=== PATIENT | male | born 1950 | race African-American/Black ===

== ENCOUNTER → 2018-05-12 15:48 | Outpatient (CLI) | payer MEDICARE, SELFPAY ==
--- NOTE | 2018-05-12 | DI.MRI.S_ITS ---
PROCEDURE: MR SHOULDER LT WO CON INDICATIONS: LEFT SHOULDER PAIN RADIATING INTO UPPER ARM TECHNIQUE: Noncontrast oblique coronal T2 fast spin echo with fat saturation, oblique sagittal T1 spin echo and T2 fast spin echo with fat saturation, axial T1 spin echo and T2 fast spin echo with fat saturation through the shoulder. COMPARISON: [facility], CR, XR SHOULDER 2+ VIEWS LEFT, 04/21/2018, 16:03. Formerly [facility], MR, SHOULDER WITHOUT CONTRAST, 02/24/2013, 16:39. FINDINGS: Image quality: Excellent. Rotator cuff: There is a partial thickness, bursal surface tear with interstitial extension involving the supraspinatus tendon (series 8, images 9-13). The infraspinatus, and subscapularis tendons appear intact throughout. The infraspinatus tendon is mildly thickened with increased internal signal compatible with mild tendinosis. Sagittal images demonstrate no muscle atrophy. Bones and bursae: No bone marrow contusions or fractures. There is severe acromioclavicular joint osteoarthritis. There is osseous hypertrophy of the undersurface of the acromion which impinges upon the bursal margin of the supraspinatus tendon (series 8, images 13-15). The acromion demonstrates conventional anatomy, without an os acromiale. Fluid is noted in the subacromial/subdeltoid bursa. Capsule and soft tissues: In the absence of intra-articular contrast, the labrum and glenohumeral ligaments appear intact. The long head of the biceps tendon demonstrates normal location. The ventricular portion of the long head of the biceps tendon is thickened with increased internal signal compatible with tendinosis. The rotator interval appears normal, without fibrosis. The coracohumeral ligament is normal in thickness. IMPRESSION: 1. Partial bursal surface tear of the mid supraspinatus tendon. 2. Mild infraspinatus tendinosis. 3. Severe acromioclavicular joint osteoarthritis. 4. Mild subacromial/subdeltoid bursitis. 5. Severe tendinosis involving the intra-articular portion of the long head of the biceps tendon. Dictated by: Iveth Kim MD, PhD on 05/12/2018 at 17:46 Approved by: Iveth Kim MD, PhD on 05/13/2018 at 10:16
== END ==
PROVIDERS: PCP Family Medicine; Visit Provider Orthopaedic Surgery
DX: M25.512 Pain in left shoulder (principal); M75.112 Incomplete rotator cuff tear or rupture of left shoulder, not specified as traumatic; M19.012 Primary osteoarthritis, left shoulder; M75.52 Bursitis of left shoulder
CPT/HCPCS: 73221

== ENCOUNTER → 2019-06-09 19:25 | Outpatient (CLI) | payer MEDICARE, SELFPAY ==
--- NOTE | 2019-06-09 | DI.MRI.S_ITS ---
PROCEDURE: MR ANKLE RT WO CON INDICATIONS: pain in right ankle and joints of right foot TECHNIQUE: Noncontrast sagittal T1 spin echo and T2 fast spin echo with fat saturation, axial proton density fast spin echo and T2 fast spin echo with fat saturation, coronal T1 spin echo and T2 fast spin echo with fat saturation through the ankle/hindfoot. COMPARISON: [facility], MR, ANKLE WITHOUT CONTRAST, 03/16/2016, 8:56. FINDINGS: Image quality: There is mild motion artifact. Bones and joints: There is an osteochondral lesion within the medial talar dome with increased subchondral cystic changes and mild irregularity and flattening of the overlying cortex. No displaced or unstable fragment. There is persistent associated mild subchondral edema. There is mild degeneration of the tibiotalar joint with mild osteophytosis. There is also associated mild cartilage thinning with mild fissuring along the osteochondral lesion. Elsewhere, no fractures or bone contusions. There are postsurgical changes within the posterior calcaneus consistent with prior Achilles tendon reimplantation with 4 surgical anchor tracts demonstrated. No hindfoot coalitions. No pathologic joint effusions. Medial structures: The posterior tibialis, flexor digitorum longus, and flexor hallucis longus tendons are intact. The posterior tibial neurovascular bundle appears normal within the tarsal tunnel, without extrinsic mass effect. The deltoid and spring ligaments appear intact. Lateral structures: The anterior talofibular, calcaneofibular, and posterior talofibular ligaments appear thickened consistent with sequela of prior sprains. More superiorly, the anterior and posterior tibiofibular ligaments appear intact, as is the intermalleolar ligament. The tibiofibular syndesmosis is normal in width at 2 mm or less. The peroneus longus and brevis tendons demonstrate normal location and morphology. Adjacent bony peroneal tubercle and retrotrochlear prominence are normal in size. The sinus tarsi demonstrates preserved fatty signal with mild edema and cystic change which may represent sequelae of ligamentous sprains. The calcaneonavicular and calcaneocuboid components of the bifurcate ligament appear intact. The dorsal calcaneocuboid ligament appears intact. Anterior structures: The tibialis anterior, extensor hallucis longus, and extensor digitorum longus tendons appear intact. The dorsal talonavicular ligament appears intact. Posterior and plantar structures: Achilles tendon is thickened distally with mild intermediate signal consistent with moderate tendinopathy. There are 4 surgical anchors along its insertion. No evidence of rupture. There is mild thickening of the central cord of the plantar fascia at its origin suggesting sequelae of prior plantar fasciitis. A small associated plantar calcaneal enthesophyte is noted. No abductor digiti quinti muscle atrophy to suggest Dawson neuropathy. IMPRESSION: 1. Osteochondral lesion of the medial talar dome redemonstrated with increased mild cortical irregularity and flattening. No displaced or unstable fragment. 2. Mild tibiotalar joint degeneration with mild cartilage thinning as well as mild chondral fissuring along the osteochondral lesion. 3. Postsurgical changes consistent with Achilles tendon reimplantation with 4 surgical anchor tracts noted. There is tendinopathy of the distal Achilles tendon without evidence of rupture. 4. Probable sequela of prior lateral ligamentous sprains. 5. Mild edema and cystic change in the sinus tarsi may reflect sinus tarsi syndrome. Dictated by: Tim Delacruz M.D. on 06/10/2019 at 10:55 Approved by: Tim Delacruz M.D. on 06/10/2019 at 11:04
== END ==
PROVIDERS: Family Provider Family Medicine; PCP Family Medicine; Visit Provider Podiatrist Foot & Ankle Surgery
DX: M25.571 Pain in right ankle and joints of right foot (principal); M19.071 Primary osteoarthritis, right ankle and foot; M93.971 Osteochondropathy, unspecified, right ankle and foot
CPT/HCPCS: 73721

== ENCOUNTER → 2019-11-19 09:41 | Outpatient (CLI) | payer MEDICARE, SELFPAY ==
--- NOTE | 2019-11-19 09:48 | DI.RAD.S_ITS ---
PROCEDURE: XR LUMBAR SPINE MIN 4V INDICATIONS: LBP TECHNIQUE: 5 views of the lumbar spine were acquired. COMPARISON: [facility], CT, IVP (ABD & PEL WWO CONTRAST), 01/20/2013, 8:53. FINDINGS: Bones: 5 nonrib-bearing vertebrae are present. No significant scoliosis. No vertebral body compression fractures. Mild degenerative change most pronounced at L5-S1 where there is joint space height loss, osteophytosis, and endplate sclerosis. No suspicious bony lesions. Soft tissues: Overlying bowel gas pattern is normal. No suspicious soft tissue calcifications. Left pelvis penile prosthesis reservoir. Oblique images: No pars defects. IMPRESSION: No acute osseous abnormality. Mild degenerative change and DDD in the lumbar spine. Dictated by: Stephan Angelo M.D. on 11/19/2019 at 10:14 Approved by: Stephan Angelo M.D. on 11/19/2019 at 10:17
== END ==
PROVIDERS: Family Provider Family Medicine; PCP Family Medicine; Referring Provider Physical Medicine & Rehabilitation; Visit Provider Physical Medicine & Rehabilitation
DX: M51.17 Intervertebral disc disorders with radiculopathy, lumbosacral region (principal); M47.27 Other spondylosis with radiculopathy, lumbosacral region
CPT/HCPCS: 72110

== ENCOUNTER → 2020-01-26 15:52 | Outpatient (CLI) | payer MEDICARE, SELFPAY ==
--- NOTE | 2020-01-26 15:55 | DI.MRI.S_ITS ---
PROCEDURE: MR HIP RT WO CON INDICATIONS: Progressive right hip pain TECHNIQUE: Noncontrast coronal T1 spin echo and STIR through the bony pelvis. Coronal and axial T2 fast spin echo with fat saturation, sagittal T1 spin echo, and oblique axial T2 fast spin echo with fat saturation through the hip. COMPARISON: None. FINDINGS: Image quality: Excellent. Bones and joints: No fracture identified. Sacroiliac joints are unremarkable in signal intensity. There is lower lumbar spondylosis and facet arthropathy. Mild bilateral hip joint degeneration. No pathologic hip joint effusion. No evidence of osteonecrosis. Incidentally noted reservoir seen in the left pelvis. Tendons and ligaments: Mild bilateral hip abductor insertional tendinopathy. Proximal iliotibial band intact. Iliopsoas tendon intact. Partial tear at the hamstring origin. The straight and reflected heads of the rectus femoris muscle origin appear intact Ligamentum teres appears intact where visualized. Labrum: Macerated appearance of the labrum suggestive of chronic ill-defined tear. There is adjacent subchondral sclerosis and spurring at the acetabulum. Mild adjacent partial-thickness chondral loss. The alpha angle of the femur is within normal limits at less than 55 degrees. Soft tissues: Visualized muscles demonstrate normal bulk and internal signal. Quadratus femoris muscle normal. Proximal sciatic neurovascular bundle appears normal adjacent to the hamstring tendons. No free pelvic fluid. Bladder normal. Genitourinary structures and bowel loops appear normal where visualized. IMPRESSION: Mild bilateral hip joint degeneration Right hamstring origin tendinopathy/partial tear, technically age indeterminate. Of note, similar finding seen on the contralateral left side on large [id number] pulse sequences. Macerated appearing tear of the right anterosuperior labrum, which is chronic with adjacent associated degenerative changes in the acetabulum and cartilage as above. Dictated by: Jonathon Bates M.D. on 01/27/2020 at 8:40 Approved by: Jonathon Bates M.D. on 01/27/2020 at 8:46
--- NOTE | 2020-01-26 15:55 | DI.MRI.S_ITS ---
PROCEDURE: MR LUMBAR SPINE WO CON INDICATIONS: axial LBP TECHNIQUE: Noncontrast sagittal T1 spin echo and T2 fast echo, sagittal STIR, axial T1 and T2 fast spin echo through the lumbar spine. In cases with scoliosis, additional coronal T2 fast spin echo may be performed. COMPARISON: [facility], MR, L-SPINE WITHOUT CONTRAST, 02/18/2014, 12:09. [facility], CR, XR LUMBAR SPINE MIN 4V, 11/19/2019, 9:50. FINDINGS: Image quality: Excellent. Alignment and Curvature: There is normal bony alignment. Bone Marrow: Marrow is of normal overall signal. No acute vertebral body compression fractures. Spinal Cord: Conus medullaris terminates at the L1 level. Visualized cord demonstrates normal signal and size. Paraspinous Soft Tissues: No paravertebral masses. Partially bilateral renal cysts. L1-L2: Loss of disc signal. No central stenosis. No neural foraminal narrowing. No neural compression. L2-L3: Loss of disc signal. Mild, diffuse disc bulge. No central stenosis. No neural foraminal narrowing. No neural compression. L3-L4: Loss of disc signal. Mild, diffuse disc bulge. Mild bilateral facet hypertrophy. No central stenosis. Mild bilateral neural foraminal narrowing. No neural compression. L4-L5: Loss of disc signal. Mild to moderate diffuse disc bulge. Mild right and moderate left facet hypertrophy. Mild narrowing of the central canal. Moderate bilateral neural foraminal narrowing. No neural compression. L5-S1: Loss of disc signal and slight loss of disc height. Mild, diffuse disc bulge. Qvdq-[id number] bilateral facet hypertrophy. No central stenosis. Moderate to severe right and moderate left neural foraminal narrowing with slight compression of the exiting right L5 nerve root. IMPRESSION: 1. Multilevel degenerative disease. 2. Multilevel facet arthropathy. 3. No significant central canal narrowing. 4. Moderate to severe right L5-S1 neural foraminal narrowing with slight compression of the exiting right L5 nerve root. Please correlate with clinical data. Dictated by: Iveth Kim MD, PhD on 01/27/2020 at 10:46 Approved by: Iveth Kim MD, PhD on 01/27/2020 at 12:11
== END ==
PROVIDERS: Family Provider Family Medicine; PCP Family Medicine; Referring Provider Physical Medicine & Rehabilitation; Visit Provider Physical Medicine & Rehabilitation
DX: M25.551 Pain in right hip (principal); M16.0 Bilateral primary osteoarthritis of hip; S73.191A Other sprain of right hip, initial encounter; S76.811A Strain of other specified muscles, fascia and tendons at thigh level, right thigh, initial encounter; M54.5 Low back pain; M47.816 Spondylosis without myelopathy or radiculopathy, lumbar region; M47.817 Spondylosis without myelopathy or radiculopathy, lumbosacral region; M51.36 Other intervertebral disc degeneration, lumbar region; M51.37 Other intervertebral disc degeneration, lumbosacral region; M48.07 Spinal stenosis, lumbosacral region
CPT/HCPCS: 72148; 73721

== ENCOUNTER 2020-06-25 03:09 | Emergency (ER) | payer MEDICARE, SELFPAY ==
[2020-06-25 03:18] VITALS: BP 200/95; PULSE 70; RESP 17; TEMP 36.6; O2SAT 99; BMI 25.7
--- NOTE | 2020-06-25 03:34 | DI.CT.S_ITS ---
PROCEDURE: CT HEAD/BRAIN WO CON INDICATIONS: left arm numbness TECHNIQUE: Noncontrast 4.5 mm thick angled axial sections acquired from the foramen magnum to the vertex, with coronal and sagittal reformats. For radiation dose reduction, the following was used: automated exposure control, adjustment of mA and/or kV according to patient size. COMPARISON: None. FINDINGS: Image quality: Excellent. CSF spaces: Basal cisterns are patent. No extra-axial fluid collections. The ventricles are symmetric in size and shape. Brain: No intracranial bleeds or masses. There is cerebral volume loss for age, with resultant ventricular and sulcal prominence. There are periventricular and deep white matter chronic small vessel ischemic changes. There is intracranial internal carotid artery atherosclerosis. Skull and face: Calvarium and visualized facial bones appear intact, without suspicious lesions. Sinuses: There is mild mucosal thickening of the maxillary sinuses. Visualized sinuses and mastoids are otherwise clear. IMPRESSION: 1. No acute intracranial findings. These findings are concordant with the overnight interpretation. Dictated by: Madelin Boyd M.D. on 06/25/2020 at 7:51 Approved by: Madelin Boyd M.D. on 06/25/2020 at 7:52
--- NOTE | 2020-06-25 03:35 | ED.NEUROSD ---
HPI - Neuro Symptoms/Deficit General Chief Complaint: Dizziness Stated Complaint: Pain down left arm x 1 month Time Seen by Provider: 06/25/20 03:32 Source: patient Mode of arrival: Ambulatory Limitations: no limitations History of Present Illness HPI Narrative: Patient is a 69-year-old male with history of hypertension hyperlipidemia presenting with left arm numbness. He has actually had left arm pain ongoing for about 1 month. He got up this evening to use the restroom he felt a little dizzy lightheaded and then felt some tingling down to his fingertips. Last was 30 minutes or last and his essentially resolved. He said upon standing initially he felt like he might lose his balance but he did not he was able to steady himself. He has no chest pain or heart palpitations. He denies any weakness. Pain in his left shoulder is not exacerbated by his neck. He denies any known injury. He is noted to be quite hypertensive which she says is very abnormal for him as well pressure is usually well controlled Related Data Home Medications Medication Instructions Recorded Confirmed amlodipine-atorvastatin [Caduet] 1 tab PO Q DAY #0 07/09/11 01/31/20 atorvastatin 10 mg tablet 10 mg PO DAILY 11/29/19 01/31/20 Previous Rx's Medication Instructions Recorded celecoxib 200 mg capsule 200 mg PO DAILY #30 cap 02/17/20 Allergies Allergy/AdvReac Type Severity Reaction Status Date / Time nuts Allergy Severe Anaphylaxis Uncoded 01/31/20 15:36 Review of Systems Review of Systems ROS Unobtainable: All systems reviewed & are unremarkable except as noted in HPI and below Constitutional Constitutional: Denies chills, Denies fever(s), Denies lethargy and Denies weakness Eyes Eyes: Denies change in vision, Denies eye discharge, Denies irritation and Denies loss of vision ENT Ears, Nose, Mouth, and Throat: Denies change in voice, Denies neck pain and Denies sore throat Cardiovascular Cardiovascular: Denies chest pain, Denies irregular heart rhythm, Reports lightheadedness, Denies palpitations, Denies dyspnea, Denies dyspnea on exertion and Denies orthopnea Respiratory Respiratory: Denies cough, Denies dyspnea, Denies dyspnea on exertion and Denies wheezing Gastrointestinal Gastrointestinal: Denies abdominal pain, Denies change in bowel habits, Denies diarrhea, Denies nausea and Denies vomiting Musculoskeletal Musculoskeletal: Denies neck pain, Reports numbness and Reports tingling Integumentary/Breasts Skin/Breast: Denies pruritus, Denies erythema, Denies rash and Denies wounds Neurologic Neurologic: Reports as per HPI, Denies abnormal movements, Denies vertigo, Denies localized weakness, Denies loss of vision, Reports numbness, Reports tingling and Denies weakness Endocrine Endocrine: Denies palpitations Allergic/Immunologic Allergic/Immunologic: Denies wheezing Patient History Medical History Degenerative joint disease of right hip Facet arthropathy, lumbar Gait instability Greater trochanteric bursitis of right hip HLD (hyperlipidemia) HTN (hypertension) Osteochondral lesion of talar dome Surgical History H/O Achilles tendon repair H/O foot surgery H/O knee surgery Family History Unknown No pertinent family history Social History Smoking Status: Never smoker Smoking Status: Never smoker Substance Use Type: does not use Exam Initial Vital Signs Initial Vital Signs: Vital Signs Temperature 97.9 F 06/25/20 03:18 Pulse Rate 70 06/25/20 03:18 Respiratory Rate 17 06/25/20 03:18 Blood Pressure 200/95 H 06/25/20 03:18 Pulse Oximetry 99 06/25/20 03:18 GENERAL: Well-appearing, well-nourished and in no acute distress. HEENT: Head atraumatic,EOMI, pupils reactive, face symmetric, moist mucous membranes CARDIOVASCULAR: Regular rate and rhythm without murmurs, rubs or gallops. RESPIRATORY: Breath sounds equal bilaterally, no wheezes rales or rhonchi. ABDOMEN: Soft, nontender. Normoactive bowel sounds all 4 quadrants. No guarding or rebound. EXTREMITIES: Normal range of motion, no clubbing or edema. Neurovascularly intact NEUROLOGICAL: Alert and oriented x4.Normal gait and speech. Cranial nerves II through XII grossly intact. Good [id number], good vlfc-[id number], strength equal bilaterally, no dysarthria or aphasia, sensation in tact to soft touch bilaterally, no visual changes, no facial droop SKIN: Warm, dry, no laceration, no petechiae, no rashes or lesions. Scores NIH Stroke Scale Level of Conciousness: Alert, keenly responsive Ask month/age: Answers both questions correctly. Open/close eyes, close hand: Performs both tasks correctly Best gaze horizontal: Normal Visual [place]: No visual loss Facial palsy: Normal symetrical movement Left arm drift: No drift for full 10 sec Right arm drift: No drift for full 10 sec Left leg drift: No drift for full 5 sec Right leg drift: No drift for full 5 sec Limb ataxia: Absent Sensory on face/arms/legs: Mild to moderate sensory loss, can tell touch Best language: No aphasia, normal Dysarthria: Normal Extinction or inattention: No abnormality Total NIH Stroke scale score: 1 Course Orders Ordered: ED Orders 06/25/20 03:34 CT head/brain wo con Stat Complete Blood Count AUTO DIFF Stat Comprehensive Metabolic Panel Stat Troponin & CK Cardiac Panel Stat Discontinued Medications Sodium Chloride (Normal Saline 0.9%) 1,000 mls @ 1,000 mls/hr IV BOLUS ONE Stop: 06/25/20 04:33 Last Admin: 06/25/20 03:53 Dose: 1,000 mls/hr Documented by: Vital Signs Vital signs: Vital Signs - 8 hr 06/25/20 03:18 06/25/20 03:36 06/25/20 03:53 Temperature 97.9 F Pulse Rate 70 60 59 L Respiratory Rate 17 14 Blood Pressure 200/95 H 164/86 H 158/111 H Pulse Oximetry 99 99 99 06/25/20 04:00 06/25/20 04:32 Temperature Pulse Rate 54 L 59 L Respiratory Rate 15 Blood Pressure 163/80 H 174/84 H Pulse Oximetry 98 99 MDM - Neuro Symptoms/Deficit Lab Data Result diagrams: 06/25/20 03:35 06/25/20 03:35 Labs: Lab Results 06/25/20 06/25/20 Range/Units 03:35 03:35 WBC 7.0 (4.5-11.0) X10^3/uL RBC 5.08 (4.5-5.9) X10^6/uL Hgb 13.6 (13.5-17.5) g/dL Hct 41.7 (41-53) % MCV 82.1 (80-100) fL MCH 26.8 (26-34) PG MCHC 32.6 (30-36) % RDW 14.6 (11.6-14.8) % Plt Count 231 (150-400) X10^3/uL Neut % (Auto) 50.0 (50-75) % Lymph % (Auto) 35.9 (25-40) % [place] % (Auto) 8.3 (3-14) % Eos % (Auto) 4.9 H (2-4) % Baso % (Auto) 0.9 (0-2) % Neut # (Auto) 3500 (2317-4929) /uL Lymph # (Auto) 2500 (1406-3717) /uL [place] # (Auto) 600 (0-900) /uL Eos # (Auto) 300 (0-450) /uL Baso # (Auto) 100 (0-100) /uL Sodium 139 (137-145) mmol/L Potassium 3.7 (3.4-5.1) mmol/L Chloride 106 (98-107) mmol/L Carbon Dioxide 28 (22-32) mmol/L BUN 19 (9-20) mg/dL Creatinine 1.32 H (0.66-1.25) mg/dL Estimated GFR 53.6 L (>60) mL/min BUN/Creatinine Ratio 14.4 (6-22) Glucose 112 H (80-110) mg/dL Calcium 9.2 (8.4-10.2) mg/dL Total Bilirubin 0.3 (0.2-1.3) mg/dL AST 21 (17-59) IU/L ALT 18 (<50) IU/L Alkaline Phosphatase 55 (38-126) U/L Total Creatine Kinase 116 (55-170) U/L CK-MB (CK-2) 0.39 (<2.37) ng/mL CK-MB (CK-2) Rel Index 0.3 L (1.5-5.0) % Troponin I < 0.012 (0.01-0.034) ng/mL Total Protein 7.7 (6.3-8.2) g/dL Albumin 4.4 (3.5-5.0) g/dL Globulin 3.3 (1.7-4.1) g/dL Albumin/Globulin Ratio 1.3 (1.0-2.8) Imaging Data CT scan - head: Radiologist's Impression: Preliminary report unremarkable CT of the head ECG Data Attestation: I personally reviewed and interpreted this ECG as follows: Prior ECG tracings: not available for review Interpretation: Normal sinus rhythm rate 61 p.r. interval 240 QRS [address] changes first-degree AV block no priors to compare Q-wave noted in V1 and V2 MDM Narrative Medical decision making narrative: The patient has a low NIH stroke score. He actually now states that he sleeps really only on his left side he thinks a loose why his left shoulder has been hurting him for about a month. He had numbness and tingling is sinus he woke up from the left side. It quickly resolved. He was a little lightheaded but did not pass out. Able to drive himself to the emergency department. Blood work is overall reassuring. I think his numbness is likely a paresthesia from his ongoing left shoulder pain. He does not have any cervical radiculopathy. He had no weakness. I recommend he have further evaluation of his left shoulder. Overall he is feeling much better. Blood pressure has improved without any hypertensive medication in the emergency department Discharge Plan Departure Patient Disposition: Home Clinical Impression: Arm paresthesia, left Instructions: DI for Cervical Radiculopathy Activity Restrictions/Additional Instructions: *You have been diagnosed with paresthesias *What to do: At this time it is likely that you have some nerve radiculopathy and paresthesias in your left arm. It does not seem to be a stroke at this time Your blood pressure has improved while your in the emergency department please continue to check it. Follow up with your primary doctor blood pressure medication may need to be adjusted *Continue to take medications as directed *Follow up with your primary care provider in 2-3 days *Return to ER if you should have weakness numbness tingling facial droop, speech difficulty, balance issues or any new, worsening or concerning symptoms Prescriptions: No Action amlodipine-atorvastatin [Caduet] 10 GM/10 MG tablet 1 tab PO Q DAY Qty: 0 RF: 0 celecoxib 200 mg capsule 200 mg PO DAILY Qty: 30 RF: 2 atorvastatin [Lipitor] 10 mg tablet 10 mg PO DAILY RF: 0 Referrals: Rickey Mendes MD [Physician] -
[2020-06-25 03:36] VITALS: BP 164/86; PULSE 60; O2SAT 99
[2020-06-25 03:42] LABS: Add Manual Diff / Slide Review NO; Basophils Absolute Auto 100 /uL (0-100); Basophils Percent Auto 0.9 % (0-2); Eosinophils Absolute Auto 300 /uL (0-450); Eosinophils Percent Auto 4.9 % (2-4); Hematocrit 41.7 % (41-53); Hemoglobin 13.6 g/dL (13.5-17.5); Lymphocytes Absolute Auto 2500 /uL (1100-4500); Lymphocytes Percent Auto 35.9 % (25-40); Mean Corpuscular HGB Conc 32.6 % (30-36); Mean Corpuscular Hemoglobin 26.8 PG (26-34); Mean Corpuscular Volume 82.1 fL (80-100); Monocytes Absolute Auto 600 /uL (0-900); Monocytes Percent Auto 8.3 % (3-14); Neutrophils Absolute Auto 3500 /uL (1500-7000); Platelet Count 231 X10^3/uL (150-400); Red Blood Cell Count 5.08 X10^6/uL (4.5-5.9); Red Cell Distribution Width 14.6 % (11.6-14.8)
[2020-06-25 03:53] VITALS: BP 158/111; PULSE 59; RESP 14; O2SAT 99
[2020-06-25 03:53] LABS: Alanine Aminotransferase 18 IU/L (<50); Albumin 4.4 g/dL (3.5-5.0); Albumin Globulin Ratio 1.3 (1.0-2.8); Alkaline Phosphatase 55 U/L (38-126); Aspartate Aminotransferase 21 IU/L (17-59); BUN Creatinine Ratio 14.4 (6-22); Bilirubin Total 0.3 mg/dL (0.2-1.3); Blood Urea Nitrogen 19 mg/dL (9-20); Calcium 9.2 mg/dL (8.4-10.2); Carbon Dioxide 28 mmol/L (22-32); Chloride 106 mmol/L (98-107); Creatine Kinase 116 U/L (55-170); Estimated Glomerular Filt Rate 53.6 mL/min (>60); Globulin 3.3 g/dL (1.7-4.1); Glucose 112 mg/dL (80-110); HEMOLYSIS < 15 (0-50); Potassium 3.7 mmol/L (3.4-5.1); Sodium 139 mmol/L (137-145); Total Protein 7.7 g/dL (6.3-8.2)
[2020-06-25] MEDS: SODIUM CHLORIDE 0.9% 1,000 ML 1000 ML IV (03:53)
[2020-06-25 04:00] VITALS: BP 163/80; PULSE 54; O2SAT 98
[2020-06-25 04:05] LABS: Troponin I < 0.012 ng/mL (0.01-0.034)
[2020-06-25 04:09] LABS: CKMB % Relative Index 0.3 % (1.5-5.0); Creatine Kinase MB 0.39 ng/mL (<2.37)
[2020-06-25 04:32] VITALS: BP 174/84; PULSE 59; RESP 15; O2SAT 99
== END 2020-06-25 04:41 | disposition home or self-care (01) ==
PROVIDERS: Emergency Provider Emergency Medicine
DX: R20.0 Anesthesia of skin (principal); M79.602 Pain in left arm; I10 Essential (primary) hypertension; E78.5 Hyperlipidemia, unspecified
CPT/HCPCS: 36415; 70450; 80053; 82550; 82553; 84484; 85025; 93005; 96360; 99284

== ENCOUNTER 2020-12-24 02:49 | Emergency (ER) | payer MEDICARE, SELFPAY ==
[2020-12-24 03:00] VITALS: BP 161/82; PULSE 74; RESP 16; TEMP 36.4; O2SAT 97; BMI 25.0
--- NOTE | 2020-12-24 03:04 | DI.RAD.S_ITS ---
PROCEDURE: XR CHEST 2V INDICATIONS: short of breath, chest congestion TECHNIQUE: 2 views of the chest were acquired. COMPARISON: [facility], , CHEST 1 VIEW, 03/05/2007, 5:46. FINDINGS: Surgical changes and devices: None. Lungs and pleura: Lungs are clear. No pleural effusions or pneumothorax. Mediastinum: Mediastinal contours are normal. Heart size is normal. Bones and chest wall: No suspicious bony abnormalities. Soft tissues appear unremarkable. IMPRESSION: No evidence acute pulmonary process. Comment: Final report is concordant with preliminary interpretation provided by [facility]. Dictated by: Torito Castano M.D. on 12/24/2020 at 7:29 Approved by: Torito Castano M.D. on 12/24/2020 at 7:29
--- NOTE | 2020-12-24 03:43 | ED_ITS ---
HPI - URI/Sore Throat General Chief Complaint: Upper Respiratory Symptoms Stated Complaint: Lungs congested, cough not clearing Time Seen by Provider: 12/24/20 02:55 Source: patient Mode of arrival: Ambulatory Limitations: no limitations History of Present Illness HPI Narrative: 70-year-old male nonsmoker with noncontributory medical history presents with a chief complaint of postnasal drip and chest congestion for the past few days. He denies any headache, sore throat or fever. He has no chest pain. He is not dizzy nor weak or lightheaded. Denies any new medications or dietary change. He denies any history of the same. He is not dizzy nor weak or lightheaded. Denies nausea, vomiting or diarrhea. He has been immunized against COVID. He did try taking a single Benadryl pill last night and did little to help him. MD Complaint: cough, rhinorrhea and nasal congestion Onset (ago): day(s) Duration: constant Severity: moderate Relieving factors: nothing Description of mucous: clear Associated symptoms: denies other symptoms Related Data Home Medications Medication Instructions Recorded Confirmed amlodipine-atorvastatin [Caduet] 1 tab PO Q DAY #0 07/09/11 01/31/20 atorvastatin 10 mg tablet 10 mg PO DAILY 11/29/19 01/31/20 Previous Rx's Medication Instructions Recorded celecoxib 200 mg capsule 200 mg PO DAILY #30 cap 02/17/20 Allergies Allergy/AdvReac Type Severity Reaction Status Date / Time nuts Allergy Severe Anaphylaxis Uncoded 12/24/20 03:00 Review of Systems Constitutional Constitutional: Denies chills, Denies fatigue, Denies fever(s), Denies frequent falls, Denies lethargy and Denies weakness Eyes Eyes: Denies change in vision, Denies eye discharge, Denies irritation and Denies loss of vision ENT Ears, Nose, Mouth, and Throat: Denies change in voice, Denies dizziness, Denies neck pain, Denies sore throat and Denies throat swelling Cardiovascular Cardiovascular: Denies chest pain, Denies irregular heart rhythm, Denies lightheadedness, Denies palpitations, Denies dyspnea, Denies dyspnea on exertion and Denies orthopnea Respiratory Respiratory: Reports chest congestion, Reports cough, Reports excessive phlegm production, Denies dyspnea, Denies dyspnea on exertion and Denies wheezing Gastrointestinal Gastrointestinal: Denies abdominal pain, Denies change in bowel habits, Denies diarrhea, Denies nausea and Denies vomiting Musculoskeletal Musculoskeletal: Denies neck pain and Denies numbness Integumentary/Breasts Skin/Breast: Denies pruritus, Denies erythema, Denies rash and Denies wounds Neurologic Neurologic: Denies behavioral changes, Denies confusion, Denies dizziness, Denies frequent falls, Denies loss of vision, Denies numbness and Denies weakness Psychiatric Psychiatric: Denies anxiety, Denies behavioral changes, Denies confusion, Denies depression, Denies homicidal ideation and Denies suicidal ideation Endocrine Endocrine: Denies fatigue, Denies flushing and Denies palpitations Hematologic/Lymphatic Hematologic/Lymphatic: Denies easy bruising Allergic/Immunologic Allergic/Immunologic: Denies urticaria, Denies throat swelling and Denies wheezing Patient History Medical History Degenerative joint disease of right hip Facet arthropathy, lumbar Gait instability Greater trochanteric bursitis of right hip HLD (hyperlipidemia) HTN (hypertension) Osteochondral lesion of talar dome Surgical History H/O Achilles tendon repair H/O foot surgery H/O knee surgery Family History Unknown No pertinent family history Social History Smoking Status: Never smoker Smoking Status: Never smoker Substance Use Type: does not use Exam Narrative Exam Narrative: GENERAL: [70] year old patient appears younger than stated age. Well-developed patient, in mild distress. HEAD: Atraumatic. Normocephalic. EYES: Pupils equal round and reactive. Extraocular motions intact. No scleral icterus. No injection or drainage. ENT: Nose without drainage. Throat without erythema, tonsillar hypertrophy or exudate, moderate clear post pharyngeal drainage. Airway patent. NECK: Trachea midline. Non tender CARDIOVASCULAR: Regular rate and rhythm without murmurs, gallops, or rubs. RESPIRATORY: Clear to auscultation. Breath sounds equal bilaterally. No wheezes, rales, or rhonchi. No increased work of breathing GASTROINTESTINAL: Abdomen soft, non-tender, nondistended. EXTREMITIES: No edema or joint tenderness. BACK: Nontender without deformity or crepitance. No flank tenderness. NEURO: AOx3. SKIN: No rash or erythema of visible areas Initial Vital Signs Initial Vital Signs: Vital Signs Temperature 97.5 F L 12/24/20 03:00 Pulse Rate 74 12/24/20 03:00 Respiratory Rate 16 12/24/20 03:00 Blood Pressure 161/82 H 12/24/20 03:00 Pulse Oximetry 97 12/24/20 03:00 Course Orders Ordered: ED Orders 12/24/20 03:04 XR chest 2V Stat 12/24/20 03:35 COVID19 -Nasal swab/Pre-Proc Stat Vital Signs Vital signs: Vital Signs - 8 hr 12/24/20 03:00 Temperature 97.5 F L Pulse Rate 74 Respiratory Rate 16 Blood Pressure 161/82 H Pulse Oximetry 97 MDM - URI/Sore Throat Lab Data Labs: Lab Results 12/24/20 Range/Units 03:35 SARS-CoV-2 (PCR) Negative (Negative) Imaging Data Chest x-ray: Radiologist's Impression: No acute findings Discharge Plan Departure Patient Disposition: Home Clinical Impression: Chest congestion Activity Restrictions/Additional Instructions: *You have been diagnosed with [Chest congestion and postnasal drip. Chest x-ray is clear, COVID is negative. Your history and physical exam are very reassuring ] *What to do: *An over the counter antihistamine such as zyrtec, chase, or claritin will help dry the secretions which are likely leading to your symptoms *Please continue to take your regular medications as directed. *Please follow up with your primary care provider in 2-3 days, call for an appointment. Let them know you were seen in the Emergency Department and that we ask that you be seen in follow up. We will electronically transmit a record of today's note if your PCP is in our system *If you do not have a primary care provider please contact the [facility] Resource line at [phone]. They will ask some questions about your medical history and help get you set up with a doctor in the community. *Return to Emergency Department if you should have any new, worsening or concerning symptoms, such as [fever greater than 101 F, shaking chills, worsening pain, persistent vomiting or other bothersome symptoms] Prescriptions: No Action amlodipine-atorvastatin [Caduet] 10 GM/10 MG tablet 1 tab PO Q DAY Qty: 0 RF: 0 celecoxib 200 mg capsule 200 mg PO DAILY Qty: 30 RF: 2 atorvastatin [Lipitor] 10 mg tablet 10 mg PO DAILY RF: 0
[2020-12-24 03:53] LABS: COVID19 -Nasal RAPID Negative (Negative)
[2020-12-24 04:15] VITALS: BP 159/75; PULSE 62; RESP 16; O2SAT 99
== END 2020-12-24 04:15 | disposition home or self-care (01) ==
PROVIDERS: Emergency Provider Emergency Medicine
DX: R09.89 Other specified symptoms and signs involving the circulatory and respiratory systems (principal); R09.82 Postnasal drip; Z20.822 Contact with and (suspected) exposure to COVID-19
CPT/HCPCS: 71046; 87635; 99283; C9803

== ENCOUNTER → 2021-08-13 13:39 | Outpatient (CLI) | payer MEDICARE, SELFPAY ==
--- NOTE | 2021-08-13 | DI.RAD.S_ITS ---
PROCEDURE: XR FOOT RT MIN 3V INDICATIONS: Pain in right foot TECHNIQUE: 3 views of the foot were acquired. COMPARISON: [facility], CT, CT FOOT RT WO CON, 01/29/2017, 14:59. [facility], CR, FOOT COMP MIN 3VW (RT), 11/03/2014, 15:11. FINDINGS: Bones: No acute, displaced fracture. Mild to moderate arthrosis of the 1st MTP with joint space loss and osteophytosis. Productive change of the hallux sesamoids. An ossific lesion is seen superior to the posterior calcaneus, which may reflect an intra-articular body. Soft tissues: No tibiotalar joint effusion. Achilles tendon appears normal. IMPRESSION: No acute osseous abnormality. Dictated by: Pankaj Young M.D. on 08/13/2021 at 14:34 Approved by: Pankaj Young M.D. on 08/13/2021 at 14:39
== END ==
PROVIDERS: PCP Family Medicine; Referring Provider Family Medicine; Visit Provider Family Medicine
DX: M79.671 Pain in right foot (principal)
CPT/HCPCS: 73630

== ENCOUNTER → 2021-12-11 14:05 | Outpatient (CLI) | payer MEDICARE, SELFPAY ==
--- NOTE | 2021-12-11 | DI.US.S_ITS ---
PROCEDURE: US RENAL COMPLETE INDICATIONS: Chronic kidney disease, stage 3a TECHNIQUE: Real-time scanning was performed of the kidneys and bladder, with image documentation. COMPARISON: None. FINDINGS: Kidneys: Kidneys are normal in size. Right kidney measures 9.5 cm long; left kidney measures 10.7 cm long. Right renal cortical thickness is 1.2 cm; left renal cortical thickness is 1.4 cm. Renal cortical echotexture is normal. No hydronephrosis or nephrolithiasis. No suspicious solid mass lesions. Bilateral renal cysts. Bladder: Pre-void bladder volume is 49 mL. Post-void residual is 0 mL. Pre-void images demonstrate no intraluminal masses or stones. On pre-void images, neither the right nor left ureteral jets are noted with color Doppler interrogation. (Of note, ureteral jets may not be detectable in up to 25% of cases due to insufficient differences in specific gravity between ureteral and bladder urine). Miscellaneous: No free pelvic fluid. IMPRESSION: No hydronephrosis. Dictated by: Iveth Kim MD, PhD on 12/11/2021 at 17:18 Approved by: Iveth Kim MD, PhD on 12/11/2021 at 17:19
== END ==
PROVIDERS: PCP Family Medicine; Referring Provider Internal Medicine Nephrology; Visit Provider Internal Medicine Nephrology
DX: N18.31 Chronic kidney disease, stage 3a (principal)
CPT/HCPCS: 76770

== ENCOUNTER 2024-02-03 08:50 | Day surgery (SDC) | payer MEDICARE, SELFPAY ==
[2024-02-03 09:08] VITALS: BP 156/88; PULSE 65; RESP 17; TEMP 36.3; O2SAT 97
[2024-02-03] MEDS: LACTATED RINGERS 1,000 ML 42 ML IV (09:23)
--- NOTE | 2024-02-03 09:36 | P.HP_ITS ---
History of Present Illness History of Present Illness Date Patient Seen: 02/03/24 Time Patient Seen: 09:36 Chief complaint: Colonoscopy Narrative: 73-year-old man here for screening colonoscopy. No family history of colon cancer. No abdominal concerns today. [facility] Medical History Greater trochanteric bursitis of right hip Degenerative joint disease of right hip Facet arthropathy, lumbar HLD (hyperlipidemia) HTN (hypertension) Gait instability Osteochondral lesion of talar dome Surgical History H/O Achilles tendon repair H/O foot surgery H/O knee surgery Family History Unknown No pertinent family history Social History Smoking Status: Never smoker alcohol intake: never Meds Home Medications and Allergies Home Medications Medication Instructions Recorded Confirmed Type amlodipine 10 mg-atorvastatin 10 1 tab PO Q DAY ##0 07/09/11 02/03/24 History mg tablet (Caduet) atorvastatin 10 mg tablet (Lipitor) 10 mg PO DAILY 11/29/19 02/03/24 History Allergies Allergy/AdvReac Type Severity Reaction Status Date / Time nuts Allergy Severe Anaphylaxis Uncoded 12/24/21 13:18 Exam Vital Signs (past 8 hours): - 02/03/24 09:08 Temperature 97.4 F L Pulse Rate 65 Respiratory Rate 17 Blood Pressure 156/88 H Pulse Oximetry 97 Oxygen Delivery Method Room Air Oxygen Delivery Method Room Air Narrative Exam Narrative: General adult man alert oriented no acute distress Chest nonlabored respiration Extremities warm well perfused Assessment & Plan Assessment & Plan narrative: The patient requires colorectal screening and colonoscopy is recommended. Technical details were discussed. Risks, benefits, alternatives explained. Risks including but not limited to myocardial infarction, aspiration, bleeding, pain, missed lesion, incomplete examination, need for further radiographic studies, intestinal injury, and need for major abdominal surgery were discussed. All questions were answered to their satisfaction, and they are in agreement with this plan. Time-Based Coding :: [TOTAL MINUTES] spent with patient and on the chart (including review of chart, obtaining history, exam, reviewing outside data, placing orders, documenting exam and treatment plan, and counseling patient) on [DATE].
[2024-02-03 10:05] VITALS: BP 133/67; PULSE 60; RESP 12; TEMP 36.9; O2SAT 97
[2024-02-03 10:10] VITALS: BP 134/73; PULSE 55; RESP 12; TEMP 36.9; O2SAT 98
--- NOTE | 2024-02-03 10:10 | P.OP.COLON_ITS ---
Operative Date/Time/Diagnoses Date of procedure: 02/03/24 Time of procedure: 10:10 Pre-op diagnosis: Colorectal screening Procedure & Clinicians Study performed: Screening colonoscopy Same procedure as scheduled: Yes Indications: Colorectal screening Surgeon: Torey Olguin Procedure Notes Procedure in detail: The history and physical was performed/updated and the patient is ASA class is 2. The procedure was discussed in detail with the patient. Potential risks co mplications including infection, bleeding, missed diagnosis, perforation, need for surgery, and were explained. Their questions were answered and informed consent was obtained. Patient was brought to the procedure room and placed standard monitoring equipment. The patient's vital signs were monitored continuously throughout the entire procedure. Prior to starting time-out was performed. The patient was placed in the left lateral recumbent position. Procedural sedation was administered by anesthesia. Examination began with a thorough inspection of the perianal area there was no evidence of fissures, fistulae, external hemorrhoids or cutaneous malignancy. The colonoscopy scope was then placed into the anal canal and was advanced to the cecum, which was identified by the ileocecal valve, the appendiceal orifice and the confluence of the taenia. The scope was then slowly withdrawn examining colon thoroughly in all directions, irrigating it of any residual stool. The scope was retroflexed within the rectum The patient tolerated the procedure well. They will be discharged once criteria are met. The prep was of fair quality. The withdrawl time was 7 minutes. FINDINGS * Diverticulosis of descending colon * No mass or polyps Specimen(s): none sent Impression: Normal colonoscopy Post-procedure Recommendations: High fiber diet Plan for aftercare: No need for further colonoscopy unless symptomatic Disposition: same day surgery
[2024-02-03 10:16] VITALS: BP 137/76; PULSE 72; RESP 14; TEMP 36.9; O2SAT 99
[2024-02-03 10:21] VITALS: BP 130/75; PULSE 56; RESP 15; TEMP 36.5; O2SAT 98
== END 2024-02-03 10:31 | disposition home or self-care (01) ==
PROVIDERS: PCP Family Medicine; Referring Provider Surgery; Visit Provider Surgery
PROC: 0DJD8ZZ Inspection of Lower Intestinal Tract, Via Natural or Artificial Opening Endoscopic (ICD-10-PCS; CPT 45378; principal; 2024-02-03 09:45)
DX: Z12.11 Encounter for screening for malignant neoplasm of colon (principal); K57.30 Diverticulosis of large intestine without perforation or abscess without bleeding
CPT/HCPCS: G0121; J2704

== ENCOUNTER 2024-02-29 01:00 | Emergency (ER) | payer MEDICARE, SELFPAY ==
[2024-02-29 01:10] VITALS: BP 192/91; PULSE 64; RESP 17; TEMP 37.1; O2SAT 97; BMI 25.0
--- NOTE | 2024-02-29 01:29 | ED_ITS ---
HPI - General Adult General Chief complaint: Urogenital-Male Stated complaint: Catheter Time Seen by Provider: 02/29/24 01:12 Source: patient Mode of arrival: Ambulatory History of Present Illness HPI narrative: Patient is a 73-year-old male. He states that he has had ?years? of issues of occasional blood in his urine. He states he is seen urology in the past of the [facility] but not in the past several years because he has not had any issues in the past several years. He states he has had workups for the blood in his urine but no specific diagnosis was found. He states that it used to occur only after having intercourse but over the past week he now has had blood in his urine without having intercourse. He states that this evening it got to the point where he could not urinate. In the past this is happened to him where he was drink a bunch of fluids and then went and urinated and passed some clots and then was able to urinate normally afterwards. This did not happen this evening. He also was recently told that maybe his prostate was becoming enlarged. He denies any fevers. No pain. When he could not urinate this evening he was concerned that maybe there was a clot causing his symptoms. Related Data Home Medications Medication Instructions Recorded Confirmed amlodipine 10 mg-atorvastatin 10 1 tab PO Q DAY ##0 07/09/11 02/03/24 mg tablet (Caduet) atorvastatin 10 mg tablet (Lipitor) 10 mg PO DAILY 11/29/19 02/03/24 Allergies Allergy/AdvReac Type Severity Reaction Status Date / Time nuts Allergy Severe Anaphylaxis Uncoded 12/24/21 13:18 Review of Systems Review of Systems Narrative: See HPI Patient History Medical History Greater trochanteric bursitis of right hip Degenerative joint disease of right hip Facet arthropathy, lumbar HLD (hyperlipidemia) HTN (hypertension) Gait instability Osteochondral lesion of talar dome Surgical History H/O Achilles tendon repair H/O foot surgery H/O knee surgery Family History Unknown No pertinent family history Social History Smoking Status: Never smoker alcohol intake: never Smoking Status: Never smoker Substance Use Type: does not use Exam Initial Vital Signs Initial Vital Signs: Vital Signs Temperature 98.8 F 02/29/24 01:10 Pulse Rate 64 02/29/24 01:10 Respiratory Rate 17 02/29/24 01:10 Blood Pressure 192/91 H 02/29/24 01:10 Pulse Oximetry 97 02/29/24 01:10 Oxygen Delivery Method Room Air 02/29/24 01:10 Const General: cooperative, comfortable and No ill appearing Resp Effort & Inspection: normal respiratory effort Cardio Rate: regular rate GI Inspection: non-distended External: normal external exam Course Orders Ordered: ED Orders 02/29/24 01:50 Urinalysis and Microscopic Stat Discontinued Medications Lidocaine HCl (Lidocaine 2% (Glydo) 6 Ml Gel) 6 ml TOP NOW ONE Stop: 02/29/24 01:30 Last Admin: 02/29/24 01:40 Dose: 6 ml Documented By: LONG Vital Signs Vital signs: Vital Signs - 8 hr 02/29/24 01:10 02/29/24 02:38 Temperature 98.8 F Pulse Rate 64 53 L Respiratory Rate 17 18 Blood Pressure 192/91 H 161/77 H Pulse Oximetry 97 97 Oxygen Delivery Method Room Air Room Air Medical Decision Making Lab Data Lab results reviewed: Yes I reviewed the patient's lab results. Labs: Lab Results 02/29/24 Range/Units 01:50 Urine Color Dark yellow Urine Appearance Cloudy Urine pH 6.0 (4.5-8.0) Ur Specific [place] 1.010 (1.000-1.035) Urine Protein Trace H (Negative) Urine Glucose (UA) Negative (Negative) g/dL Urine Ketones Negative (NEGATIVE) Urine Occult Blood 3+ H (Negative) Urine Nitrate Negative (Negative) Urine Bilirubin Negative (NEGATIVE) Urine Urobilinogen 0.2 (0.2) E.U./dL Ur Leukocyte Esterase Negative (NEGATIVE) Urine RBC >100/hpf H (0-5/HPF) Urine WBC None seen (0-5/HPF) Ur Squamous Epith Cells 0-1 /hpf (0-5/HPF) Urine Bacteria None seen (None) Ur Culture Indicated? Cult not indicated Vol Urine Centrifuged 10ml (spun) MDM Narrative Medical decision making narrative: Patient was unable to urinate here in the ER and a bladder scan shows between 350 and 400 cc of urine. I discussed this with him and we decided to place a Naylor catheter. A Naylor catheter was placed without issue. Had immediate return of urine. It was blood-tinged but there were no clots. The bladder continue to drain freely afterwards. Urinalysis is not consistent with an infection. I had a discussion with the patient regarding his symptoms. We opted to leave the Naylor catheter in place. He was given information to follow- up with urology here locally but he could also follow up with his urologist under the [facility]. He was given care instructions with the guard to the catheter. He was given return precautions. He expressed understanding and agreement. Discharge Plan Departure Patient Disposition: Home Clinical Impression: Urinary tract infection, Hematuria Instructions: How to Care for Your Naylor Catheter -- Male, DI for Urinary Retention in Men Activity Restrictions/Additional Instructions: I do recommend that you continue to take all of your medications as directed. Recommend that you leave the catheter in place until follow-up with Urology. You can contact our local urologist at the number provided below for follow-up next week. Be sure that you were staying hydrated. Return to the emergency department for new or worsening symptoms. Prescriptions: No Action amlodipine-atorvastatin [Caduet] 10 GM/10 MG tablet 1 tab PO Q DAY Qty: 0 atorvastatin [Lipitor] 10 mg tablet 10 mg PO DAILY Referrals: Gurvinder Walls MD [Physician] - Rickey Mendes MD [Primary Care Provider] - Stand Alone Forms: Patient Portal/API
[2024-02-29] MEDS: LIDOCAINE 2% (GLYDO) 6 ML GEL TOP (01:40)
[2024-02-29 02:07] LABS: Appearance Urine UA CLOUDY; Bilirubin Urine UA NEGATIVE (NEGATIVE); Glucose Urine UA NEGATIVE (Negative); Ketones Urine UA NEGATIVE (NEGATIVE); Leukocyte Esterase Urine UA NEGATIVE (NEGATIVE); Nitrite Urine UA NEGATIVE (Negative); Occult Blood Urine UA 3+ (Negative); Protein Urine UA TRACE (Negative); Urobilinogen Urine UA 0.2 E.U./dL (0.2)
[2024-02-29 02:08] LABS: Color Urine UA Dark Yellow
[2024-02-29 02:09] LABS: RBC Urine >100/HPF (0-5/HPF); Urine Volume 10mL (spun)
[2024-02-29 02:13] LABS: Bacteria Urine None Seen; Culture Indicated Urine Cult Not Indicated; Squamous Epithelial Cell Urine 0-1 /HPF (0-5/HPF); WBC Urine None Seen (0-5/HPF)
[2024-02-29 02:38] VITALS: BP 161/77; PULSE 53; RESP 18; O2SAT 97
== END 2024-02-29 02:45 | disposition home or self-care (01) ==
PROVIDERS: Emergency Provider Emergency Medicine; PCP Family Medicine
DX: N39.0 Urinary tract infection, site not specified (principal); R31.9 Hematuria, unspecified
CPT/HCPCS: 51798; 81001; 99283

== ENCOUNTER 2025-06-17 01:42 | Observation (INO) | payer MEDICARE, SELFPAY ==
[2025-06-17] VITALS (16 sets, daily range): BP systolic 121–213; BP diastolic 59–95; PULSE 57–71; RESP 12–27; TEMP 36.1–36.8; O2SAT 95–99; BMI 25.0
--- NOTE | 2025-06-17 01:44 | EKG_ITS ---
[address] [address] Test Date: 2025-06-17 Pat Name: Nereida Callejas Department: [facility] Room: Gender: Male [employer]: : 1950 Requested By: Order Number: [id number] Reading MD: Abdi Cote MD Measurements Intervals [place] Rate: 66 P: 68 [place]: 220 QRS: -14 QRSD: 88 T: 4 QT: 320 QTc: 335 Interpretive Statements Sinus rhythm with 1st degree AV block Nonspecific T wave abnormality Electronically Signed On 06-17-2025 7:29:17 PST by Abdi Cote MD
--- NOTE | 2025-06-17 01:46 | ED.CHESTPAIN ---
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 He described it as squeezing pain non radiating not associated with diaphoresis or n/v. Pain 3/10 at this time. Denies back, neck, jaw, shoulder, abd pain, sob, chatterjee, leg pain or swelling. Other than what is stated 14 pt ROS is negative. Related Data Home Medications ?Medication ?Instructions ?Recorded ?Confirmed amlodipine 10 mg-atorvastatin 10 1 tab PO Q DAY ##0 07/09/11 06/17/25 mg tablet (Caduet) atorvastatin 10 mg tablet (Lipitor) 10 mg PO DAILY 11/29/19 06/17/25 Allergies Allergy/AdvReac Type Severity Reaction Status Date / Time nuts Allergy Severe Anaphylaxis Uncoded 06/17/25 02:05 Review of Systems Review of Systems ROS Unobtainable: All systems reviewed & are unremarkable except as noted in HPI and below Patient History Medical History Greater trochanteric bursitis of right hip Degenerative joint disease of right hip Facet arthropathy, lumbar HLD (hyperlipidemia) HTN (hypertension) Gait instability Osteochondral lesion of talar dome Surgical History H/O Achilles tendon repair H/O foot surgery H/O knee surgery Family History Unknown No pertinent family history Social History Smoking Status: Never smoker alcohol intake: never Exam Narrative Exam Narrative: GENERAL: [74] year old patient appears stated age. Well-developed patient, in mild distress. HEAD: Atraumatic. Normocephalic. EYES: Pupils equal round and reactive. Extraocular motions intact. No scleral icterus. No injection or drainage. ENT: Nose without bleeding, purulent drainage. Throat without erythema, tonsillar hypertrophy or exudate. Airway patent. NECK: Trachea midline. Non tender CARDIOVASCULAR: Regular rate and rhythm without murmurs, gallops, or rubs. RESPIRATORY: Clear to auscultation. Breath sounds equal bilaterally. No wheezes, rales, or rhonchi. GASTROINTESTINAL: Abdomen soft, non-tender, nondistended. EXTREMITIES: No edema or joint tenderness. BACK: Nontender without deformity or crepitance. No flank tenderness. NEURO: AOx3. SKIN: No rash or erythema of visible areas Initial Vital Signs Initial Vital Signs: Vital Signs Pulse Rate 71 06/17/25 01:51 Pulse Oximetry 98 06/17/25 01:51 Scores HEART Score Heart Score history: Slightly Suspicious Heart Score EKG: Non-Specific repolarization disturbance Heart Score Age: > or = 65 years old Heart Score risk factors: 1-2 risk factors Heart Score troponin: < or = to normal limit Heart Score Total: 4 Course Orders Ordered: ED Orders 06/17/25 01:44 EKG-12 Lead Stat 06/17/25 01:58 Complete Blood Count AUTO DIFF Stat Comprehensive Metabolic Panel Stat Lipase Stat Magnesium Stat NT-proBNP (BNP-Adult 18+) Stat Troponin I Stat 06/17/25 02:15 XR chest 1V Stat EKG-12 Lead Stat 06/17/25 04:02 Trop I [Troponin I] Stat 06/17/25 04:41 EKG-12 Lead Stat Nitroglycerin (Nitroglycerin 0.4 Mg Sl Tab) 0.4 mg SL [id number] PRN PRN Reason: Chest Pain Last Admin: 06/17/25 02:28 Dose: 0.4 mg Documented By: Admin: 06/17/25 02:10 Dose: 0.4 mg Documented By: MIRI Discontinued Medications Aspirin (Aspirin 81 Mg Chew Tab) 324 mg PO NOW ONE Stop: 06/17/25 01:57 Last Admin: 06/17/25 02:01 Dose: 324 mg Documented By: Nitroglycerin (Nitroglycerin 0.4 Mg Sl Tab) 0.4 mg SL NOW ONE Stop: 06/17/25 01:57 Last Admin: 06/17/25 02:01 Dose: 0.4 mg Documented By: Vital Signs Vital signs: Vital Signs - 8 hr 06/17/25 01:51 06/17/25 01:52 06/17/25 01:52 Temperature Pulse Rate 71 71 Respiratory Rate Blood Pressure 213/95 H Pulse Oximetry 98 99 Oxygen Delivery Method 06/17/25 02:00 06/17/25 02:00 06/17/25 02:01 Temperature Pulse Rate 69 65 Respiratory Rate 12 Blood Pressure 175/78 H 213/95 H Pulse Oximetry 98 Oxygen Delivery Method Room Air 06/17/25 02:05 06/17/25 02:10 06/17/25 02:10 Temperature 98.2 F Pulse Rate 65 64 Respiratory Rate 17 13 Blood Pressure 213/95 H 143/70 H Pulse Oximetry 99 96 Oxygen Delivery Method Room Air Room Air 06/17/25 02:20 06/17/25 02:20 06/17/25 02:28 Temperature Pulse Rate 66 Respiratory Rate 13 Blood Pressure 136/63 134/63 Pulse Oximetry 95 Oxygen Delivery Method Room Air 06/17/25 02:28 06/17/25 02:30 06/17/25 02:30 Temperature Pulse Rate 61 63 Respiratory Rate 13 14 Blood Pressure 129/59 L Pulse Oximetry 95 95 Oxygen Delivery Method Room Air Room Air 06/17/25 03:00 06/17/25 03:00 06/17/25 03:30 Temperature Pulse Rate 58 L 61 Respiratory Rate 16 27 H Blood Pressure 121/59 L Pulse Oximetry 96 97 Oxygen Delivery Method Room Air Room Air 06/17/25 03:31 06/17/25 03:31 06/17/25 04:00 Temperature Pulse Rate 57 L Respiratory Rate 16 Blood Pressure 130/77 132/63 Pulse Oximetry 97 Oxygen Delivery Method Room Air 06/17/25 04:00 Temperature Pulse Rate 58 L Respiratory Rate 21 Blood Pressure Pulse Oximetry 97 Oxygen Delivery Method Room Air MDM - Chest Pain Lab Data 06/17/25 01:58 06/17/25 01:58 Labs: Lab Results 06/17/25 06/17/25 Range/Units 01:58 04:02 WBC 8.1 (4.5-11.0) X10^3/uL RBC 4.97 (4.5-5.9) X10^6/uL Hgb 13.2 L (13.5-17.5) g/dL Hct 39.7 L (41-53) % MCV 79.9 L (80-100) fL MCH 26.6 (26-34) PG MCHC 33.3 (30-36) % RDW 15.4 H (11.6-14.8) % Plt Count 250 (150-400) X10^3/uL Neut % (Auto) 49.0 L (50-75) % Lymph % (Auto) 33.1 (25-40) % [place] % (Auto) 9.8 (3-14) % Eos % (Auto) 7.6 H (2-4) % Baso % (Auto) 0.5 (0-2) % Neut # (Auto) 4000 (0316-5966) /uL Lymph # (Auto) 2700 (2478-5163) /uL [place] # (Auto) 800 (0-900) /uL Eos # (Auto) 600 H (0-450) /uL Baso # (Auto) 0 (0-100) /uL Sodium 140 (137-145) mmol/L Potassium 3.8 (3.4-5.1) mmol/L Chloride 105 (98-107) mmol/L Carbon Dioxide 25 (22-32) mmol/L BUN 25 H (9-20) mg/dL Creatinine 1.54 H (0.66-1.25) mg/dL Estimated GFR 47 L (>60) mL/min BUN/Creatinine Ratio 16.2 (6-22) Glucose 137 H (70-99) mg/dL Calcium 8.9 (8.4-10.2) mg/dL Magnesium 2.2 (1.6-2.3) mg/dL Total Bilirubin 0.5 (0.2-1.3) mg/dL AST 30 (17-59) IU/L ALT 29 (<50) IU/L Alkaline Phosphatase 82 (38-126) U/L Troponin I 0.021 < 0.012 (0.01-0.034) ng/mL NT-Pro-B Natriuret Pep 52 (<450) pg/mL Total Protein 7.8 (6.3-8.2) g/dL Albumin 4.5 (3.5-5.0) g/dL Globulin 3.3 (1.7-4.1) g/dL Albumin/Globulin Ratio 1.4 (1.0-2.8) Lipase 115 (23-300) U/L ECG Data Interpretation: Sinus Rhythm HR 66 OK 220 QRS 88 QT 320 nonspecific t wave changes v5/6 no previous ekg to compare MDM Narrative Medical decision making narrative: All labwork, vital signs, cytology laboratory manager note, medication list, previous ER visits and all imaging studies reviewed. Pt given asa and nitro x3 and is now pain free. 1st set trop 0.021 cr 1.54 BNP 52. Chest x-ray showed increased mild bilateral perihilar basilar opacities probably incidental related to differences in technique. Mild active infiltrates or pulmonary edema unlikely. Heart score 4. 2nd trop <0.012. 2 ekgs show t wave inversion v4/5/6 with no old ekgs to compare against. Differential dx nstemi, stemi, unstable angina, gerd, anxiety. Case d/w who has graciously accepted pt for observation. Discharge Plan Departure Patient Disposition: Admitted as Observation Clinical Impression: Chest pain
--- OUTSIDE RECORDS SUMMARY | 2025-06-17 01:48 | XMS_ITS | Encounter Summary ---
Author Organization [facility] Address [address] [place] [address] Care Team Providers Care Division Controller Name Role Phone Pcp, None Selected Primary Care Provider Unavail able Encounter Details Date Type Department Care Team (Late st Contact Info) Description 07/17/2021 [facility] [address] [place] [address] Mychart, Generic Provider [address] [place], [place] [id number] Social History Tobacco Use Types Packs/Day Years Used Date Smoking Tobacco: Never Smokeless Tobacco: Never Alcohol Use Standard Drinks/Week Comments No 0 (1 standard drink = 0.6 oz pur e alcohol) Sex and Gender Information Value Date Recorded Sex Assigned at Not on file Legal Sex Male 4:23 PM PDT Gender Identity Not on file Sexual Orientation Not on file documented as of this encounter Plan of Treatment Not on file documented as of this encounter Visit Diagnoses Not on filedocumented in this encounter Care Teams Division Controller Relationship Specialty Start Date End Date Pcp, None Selected PCP - General 10/14/24 documented as of this encounter
[2025-06-17] MEDS: NITROGLYCERIN 0.4 MG SL TAB SL ×3 (02:01→02:28)
[2025-06-17] MEDS: ASPIRIN 81 MG CHEW TAB 324 MG PO (02:01)
--- NOTE | 2025-06-17 02:15 | EKG_ITS ---
[facility] [address] [place] [address] Test Date: 2025-06-17 Pat Name: Nereida Callejas Department: [facility] Room: Gender: Male Distribution Engineer: ANGEL : 1950 Requested By: Order Number: [id number] Reading MD: Abdi Cote MD Measurements Intervals Watkins Rate: 61 P: 17 CO: 238 QRS: 2 QRSD: 76 T: -11 QT: 394 QTc: 396 Interpretive Statements Sinus rhythm with 1st degree AV block Nonspecific ST and T wave abnormality Electronically Signed On 06-17-2025 7:29:21 PST by Abdi Cote MD
--- NOTE | 2025-06-17 02:15 | DI.RAD.S_ITS ---
PROCEDURE: XR CHEST 1V INDICATIONS: chest pain TECHNIQUE: One view of the chest was acquired. COMPARISON: [facility], CR, XR CHEST 2V, 12/24/2020, 3:05. FINDINGS: Surgical changes and devices: None. Lungs and pleura: Increased opacities are seen in bilateral perihilar and infrahilar regions concerning for small bilateral patchy infiltrates versus atelectasis. No pleural effusions or pneumothorax. Mediastinum: Mediastinal contours appear normal. Heart size is normal. Bones and chest wall: No suspicious bony lesions. Overlying soft tissues appear unremarkable. IMPRESSION: Finding is concerning for bilateral perihilar and infrahilar infiltrates versus atelectasis. Clinical correlation and follow-up is recommended. No pleural effusion or pneumothorax. No discrepancies. Dictated by: Sukumar Castro M.D. on 06/17/2025 at 8:15 Approved by: Sukumar Castro M.D. on 06/17/2025 at 8:16
[2025-06-17 02:26] LABS: Add Manual Diff / Slide Review NO; Hematocrit 39.7 % (41-53); Hemoglobin 13.2 g/dL (13.5-17.5); Lymphocytes Absolute Auto 2700 /uL (1100-4500); Mean Corpuscular HGB Conc 33.3 % (30-36); Mean Corpuscular Hemoglobin 26.6 PG (26-34); Mean Corpuscular Volume 79.9 fL (80-100); Platelet Count 250 X10^3/uL (150-400)
[2025-06-17 02:33] LABS: Alanine Aminotransferase 29 IU/L (<50); Albumin 4.5 g/dL (3.5-5.0); Albumin Globulin Ratio 1.4 (1.0-2.8); Alkaline Phosphatase 82 U/L (38-126); Blood Urea Nitrogen 25 mg/dL (9-20); Calcium 8.9 mg/dL (8.4-10.2); Carbon Dioxide 25 mmol/L (22-32); Chloride 105 mmol/L (98-107); Estimated Glomerular Filt Rate 47 mL/min (>60); Globulin 3.3 g/dL (1.7-4.1); Glucose 137 mg/dL (70-99); HEMOLYSIS 38 (0-50); Lipase 115 U/L (23-300); Magnesium 2.2 mg/dL (1.6-2.3); Potassium 3.8 mmol/L (3.4-5.1); Sodium 140 mmol/L (137-145); Total Protein 7.8 g/dL (6.3-8.2)
[2025-06-17 02:44] LABS: NT-proBNP (BNP-Adult 18+) 52 pg/mL (<450); Troponin I 0.021 ng/mL (0.01-0.034)
--- NOTE | 2025-06-17 04:05 | PC.NURSE ---
Pt ambulatory to restroom without difficulty or assistance
[2025-06-17 04:39] LABS: Troponin I < 0.012 ng/mL (0.01-0.034)
--- NOTE | 2025-06-17 05:58 | PC.NURSE ---
Admitted to ACU at 05:55. A/O x 4, denies pain. Oriented to room and call light, call light within reach.
--- NOTE | 2025-06-17 08:43 | DI.NM.S_ITS ---
PROCEDURE: NM EXERCISE TREADMILL NON NUC COMPARISON: None. INDICATIONS: chest pain FINDINGS: Patient exercised for 9 minutes and 21 seconds reaching 108% of max predicted heart rate. Excellent exercise tolerance (10.1METs, KRISTEN -48%). Hypertension at rest (BP 170/82mmHg) and hypertensive response to exercise (max BP 222/62mmHg). No angina during the study. Resting ECG showed non-specific ST changes that didn't alter significantly during exercise or recovery. Rare PVCs present. IMPRESSION: Low risk, normal treadmill non-nuclear stress test from inducible ischemia standpoint. Excellent exercise capacity (KRISTEN -48%). Hypertension at rest (BP 170/82mmHg) and hypertensive response to exercise (max BP 222/62mmHg). Dictated by: Jhonathan Powers MD on 06/17/2025 at 12:48 Approved by: Jhonathan Powers MD on 06/17/2025 at 12:52
--- NOTE | 2025-06-17 09:05 | CM.DANOTE ---
Initial DCP Assessment Note. Review EMR and PT Interview. Met with patient at bedside to discuss discharge needs.PT is alert x 4. No acute distress. Independent. Payor:[facility] PCP: Summary & Plan:?74 y/o male arrived to ED via POV c/o chest pain. Admitted OBS. Dx. Chest pain. Plan: serial troponin's, echo, and possible Stress Test. Discharge Planning/Care Management CM Discharge Assessment Start: 06/17/25 06:00 Freq: Status: Active Protocol: Document 06/17/25 08:58 (Rec: 06/17/25 09:05 [id number]) Discharge Planning Assessment Assigned Discharge Lakesha Blake RN CM [employer]inisher Provider Dr. Mendes Insurance Medicare Advance Directives? No History Provided By Patient Has Patient been No admitted in last 30 days? Prior Living House Arrangements Type of Drives own vehicle transporation used prior to admit Independent with ADL Yes 's Is patient alert and Yes oriented? Barriers to No Discharge Discharge Plan Home Transportation Drive himself home Arrangement Referrals Initiated None needed Review Status In Process Please Provide Date 06/17/25 Initial DC Assessment Was Performed Next Review Type Continued Stay Review
--- NOTE | 2025-06-17 13:10 | P.HP_ITS ---
History of Present Illness History of Present Illness Date Patient Seen: 06/17/25 Time Patient Seen: 13:11 Date of Onset of Symptoms: 06/16/25 Chief complaint: Chest discomfort Narrative: Patient is 74-year-old male well known to me who presents with substernal chest pain. Patient had been driving to the airport and came back about midnight last night was getting into bed and started to have some discomfort in the going to lower chest which moved into his central chest. He describes it as somewhat of a pressure no radiation no shortness of breath diaphoresis or other change. Was consistent for about an hour and a half. He had 4/10 at its peak. Did not radiate anywhere. Had no other changes. Patient presented to the emergency room and during that time he was given 3 nitro on eventually the pain resolved. He has not really sure if it reacted acutely. Patient has had no history of significant reflux cardiac or other changes is not had any recent reflux. He is had not had any difficulty swallowing or other changes. He is felt well since he has been here and has no other changes. FORMERLY [facility], [facility] Medical History Greater trochanteric bursitis of right hip Degenerative joint disease of right hip Facet arthropathy, lumbar HLD (hyperlipidemia) HTN (hypertension) Gait instability Osteochondral lesion of talar dome Surgical History H/O Achilles tendon repair H/O foot surgery H/O knee surgery Family History Unknown No pertinent family history Social History Smoking Status: Never smoker alcohol intake: never Meds Home Medications and Allergies Home Medications ?Medication ?Instructions ?Recorded ?Confirmed ?Type atorvastatin 10 mg tablet (Lipitor) 10 mg PO DAILY 07/1906/17/25 History amlodipine 10 mg tablet 10 mg PO DAILY 06/17/2505/30 History nitroglycerin 0.4 mg sublingual 0.4 mg sublingual Q5MI NX3 PRN 06/17/25 Rx tablet (Nitrostat) Chest Pain #30 tabs Allergies Allergy/AdvReac Type Severity Reaction Status Date / Time nuts Allergy Severe Anaphylaxis Uncoded 06/17/25 02:05 Review of Systems Review of Systems Narrative: Patient had no urinary changes bowel changes no abdominal pain. Fevers chills cough headaches visual symptoms Exam Vital Signs (past 8 hours): - 06/17/25 05:55 06/17/25 06:00 06/17/25 08:00 Temperature 97.8 F 97.9 F Pulse Rate 64 67 Respiratory Rate 16 14 Blood Pressure 137/66 129/60 Pulse Oximetry 97 99 Oxygen Delivery Method Room Air Oxygen Flow Rate 0 0 06/17/25 12:00 Temperature 97.0 F L Pulse Rate 61 Respiratory Rate 16 Blood Pressure 139/69 Pulse Oximetry 97 Oxygen Delivery Method Oxygen Flow Rate 0 Oxygen Delivery Method Room Air Oxygen Flow Rate 0 Narrative Exam Narrative: Alert elderly male younger than his stated age in no acute distress HEENT exam is unremarkable neck supple without adenopathy JVD or bruits lungs are clear heart is regular rate and rhythm without murmurs clicks rubs or gallops abdomen is soft positive bowel sounds nontender extremities without edema. Neurologic exam was normal Objective Labs 06/17/25 01:58 06/17/25 01:58 Labs: Laboratory Results - last 24 hr 06/17/25 06/17/25 01:58 04:02 WBC 8.1 RBC 4.97 Hgb 13.2 L Hct 39.7 L MCV 79.9 L MCH 26.6 MCHC 33.3 RDW 15.4 H Plt Count 250 Neut % (Auto) 49.0 L Lymph % (Auto) 33.1 [place] % (Auto) 9.8 Eos % (Auto) 7.6 H Baso % (Auto) 0.5 Neut # (Auto) 4000 Lymph # (Auto) 2700 [place] # (Auto) 800 Eos # (Auto) 600 H Baso # (Auto) 0 Sodium 140 Potassium 3.8 Chloride 105 Carbon Dioxide 25 BUN 25 H Creatinine 1.54 H Estimated GFR 47 L BUN/Creatinine Ratio 16.2 Glucose 137 H Calcium 8.9 Magnesium 2.2 Total Bilirubin 0.5 AST 30 ALT 29 Alkaline Phosphatase 82 Troponin I 0.021 < 0.012 NT-Pro-B Natriuret Pep 52 Total Protein 7.8 Albumin 4.5 Globulin 3.3 Albumin/Globulin Ratio 1.4 Lipase 115 Assessment & Plan Assessment & Plan narrative: Chest pain. Certainly concerning for possible cardiac disease. Given location and description. Had negative troponins in the emergency room. EKG shows some nonspecific changes but nothing definitive. Will continue with nitro as needed and try to get blood pressure under better control and will set up treadmill Hypertension. Control overall has been adequately certainly normal now. But has been quite elevated when he came in. Will continue amlodipine at this point but may need to add some type of beta-ann marie based on his response. Will see how things go. Rechecked next week Hyperlipidemia. Continue Lipitor. Code status full. GI prophylaxis no needed at this time. Disposition. Hopefully we will be defining his risk soon and he can go home Time-Based Coding :: [TOTAL MINUTES] spent with patient and on the chart (including review of chart, obtaining history, exam, reviewing outside data, placing orders, documenting exam and treatment plan, and counseling patient) on [DATE].
--- NOTE | 2025-06-17 13:15 | PM.DS.1 ---
History of Present Illness History of Present Illness Date Patient Seen: 06/17/25 Time Patient Seen: 13:15 Date of Onset of Symptoms: 06/16/25 Chief complaint: Chest discomfort Narrative: Patient is 74-year-old male well known to me who presents with substernal chest pain. Patient had been driving to the airport and came back about midnight last night was getting into bed and started to have some discomfort in the going to lower chest which moved into his central chest. He describes it as somewhat of a pressure no radiation no shortness of breath diaphoresis or other change. Was consistent for about an hour and a half. He had 4/10 at its peak. Did not radiate anywhere. Had no other changes. Patient presented to the emergency room and during that time he was given 3 nitro on eventually the pain resolved. He has not really sure if it reacted acutely. Patient has had no history of significant reflux cardiac or other changes is not had any recent reflux. He is had not had any difficulty swallowing or other changes. He is felt well since he has been here and has no other changes. Discharge Providers Provider Date of admission: 06/17/25 05:24 Discharge Date: 06/17/25 Primary care physician: Rickey Mendes MD Discharge provider: Rickey Mendes MD Summary Hospital Course Discharge Diagnosis: Chest pain noncardiac Hypertension Hyperlipidemia Hospital Course: Chest pain. Patient presented to the emergency room EKG was not specific and some nonspecific changes his troponins were negative and his pain resolved. He has had no pain since that time. He has otherwise been feeling well. Patient was on treadmill by correctional guard found to be normal. Low risk. Will discharge home and try to get more better control his blood pressure will give nitro just in case he feels like he has pain will follow-up next Friday appears to be noncardiac esophageal causes possible will just see what his symptoms are Hyperlipidemia continue Lipitor Hypertension. Control is good right now but did have a hypertensive response to exercise. May need to consider beta-ann marie will hold now and rechecked his blood pressure daily for the next 5 days and then rechecked him in clinic will see what his blood pressures do not see how he does. Follow from there. Exam Vital Signs (past 8 hours): - 06/17/25 05:55 06/17/25 06:00 06/17/25 08:00 Temperature 97.8 F 97.9 F Pulse Rate 64 67 Respiratory Rate 16 14 Blood Pressure 137/66 129/60 Pulse Oximetry 97 99 Oxygen Delivery Method Room Air Oxygen Flow Rate 0 0 06/17/25 12:00 Temperature 97.0 F L Pulse Rate 61 Respiratory Rate 16 Blood Pressure 139/69 Pulse Oximetry 97 Oxygen Delivery Method Oxygen Flow Rate 0 Oxygen Delivery Method Room Air Oxygen Flow Rate 0 Narrative Exam Narrative: Alert male please see physical exam with history and physical Objective Labs 06/17/25 01:58 06/17/25 01:58 Labs: Laboratory Results - last 24 hr 06/17/25 06/17/25 01:58 04:02 WBC 8.1 RBC 4.97 Hgb 13.2 L Hct 39.7 L MCV 79.9 L MCH 26.6 MCHC 33.3 RDW 15.4 H Plt Count 250 Neut % (Auto) 49.0 L Lymph % (Auto) 33.1 [place] % (Auto) 9.8 Eos % (Auto) 7.6 H Baso % (Auto) 0.5 Neut # (Auto) 4000 Lymph # (Auto) 2700 [place] # (Auto) 800 Eos # (Auto) 600 H Baso # (Auto) 0 Sodium 140 Potassium 3.8 Chloride 105 Carbon Dioxide 25 BUN 25 H Creatinine 1.54 H Estimated GFR 47 L BUN/Creatinine Ratio 16.2 Glucose 137 H Calcium 8.9 Magnesium 2.2 Total Bilirubin 0.5 AST 30 ALT 29 Alkaline Phosphatase 82 Troponin I 0.021 < 0.012 NT-Pro-B Natriuret Pep 52 Total Protein 7.8 Albumin 4.5 Globulin 3.3 Albumin/Globulin Ratio 1.4 Lipase 115 PFSH Medical History Greater trochanteric bursitis of right hip Degenerative joint disease of right hip Facet arthropathy, lumbar HLD (hyperlipidemia) HTN (hypertension) Gait instability Osteochondral lesion of talar dome Surgical History H/O Achilles tendon repair H/O foot surgery H/O knee surgery Family History Unknown No pertinent family history Social History Smoking Status: Never smoker alcohol intake: never Discharge Assessment & Plan Assessment and Plan Assessment: Chest pain noncardiac Plan of Treatment: Discharge Discharge Plan Discharge Plan Patient Disposition: Home Discharge orders & Medications Prescriptions: New nitroglycerin [Nitrostat] 0.4 mg Tablet, Sublingual 0.4 mg sublingual [id number] PRN (Reason: Chest Pain) Qty: 30 0RF Continued amlodipine 10 mg tablet 10 mg PO DAILY atorvastatin [Lipitor] 10 mg tablet 10 mg PO DAILY Follow up/Referrals: Rickey Mendes MD [Primary Care Provider, Family Practice] - 06/21/25 Referral Note: please call for appointment Discharge Health Status Multidrug resistant organism: No MDRO Diet/Activity/Treatments Diet: Diet as Tolerated Activity: as tolerated Other treatments: check bp once a day until seen. bring cuff to appointment Skin/Wound/Dressing Care Report to your healthcare provider any signs of infection, such as:: chills, fever and increased pain Visit Report/Discharge Packet Stand Alone Forms: [employer], Patient Portal/API, Stroke Signs & Symptoms, Influenza Vaccine Info, Notice of Privacy Practices, Inpatient vs Outpatient, Pneumococcal Vaccine Info, Pt. Rights & Responsibilities Discharge Data Primary Care Provider: Rickey Mendes Attending Provider: Rickey Mendes Admit Date/Time: 06/17/25 05:24
--- NOTE | 2025-06-17 14:05 | PC.NURSE ---
Day shift: paperwork signed and all questions answered. Left unit at approx 1345. Pt wanted to ambulate to his car and he tolerated well. This senior copywriter went with him to his car. New script sent to Pt's pharmacy. Has all personal belongings. Pt with no c/o chest pain on discharge.
== END 2025-06-17 14:38 | disposition home or self-care (01) ==
LOC: ED 05:20 → AC 05:26
PROVIDERS: Admitting Provider Family Medicine; Emergency Provider Family Medicine; PCP Family Medicine; Referring Provider Family Medicine; Visit Provider Family Medicine
DX: R07.89 Other chest pain (principal); I10 Essential (primary) hypertension; E78.5 Hyperlipidemia, unspecified
CPT/HCPCS: 36415; 71045; 80053; 83690; 83735; 83880; 84484; 85025; 93005; 93010; 93017; 99284; G0378